=== PATIENT | male | born 1990 | race Caucasian/White ===

== ENCOUNTER 2020-07-20 13:03 | Emergency (ER) | payer SELFPAY ==
[~2020-07-20] VITALS: Ht 188 cm; Wt 135.0 kg
[2020-07-20 13:11] VITALS: BP 142/86
[2020-07-20] MEDS ORDERED: DIPH,PERTUSS(ACELL),TET VAC/PF 0.5 ML IM-VACC ONE ×2 (14:18→14:30)
--- NOTE | 2020-07-20 14:36 | NUR ---
emt at bedside for clean up.
[2020-07-20] MEDS ORDERED: RABIES VACCINE /PF 2.5 UNITS IM-VACC ONE (16:33)
[2020-07-20] MEDS ORDERED: RABIES IMMUNE GLOBULIN/PF 300 UNITS/ML,1ML IM ONE (17:00)
[2020-07-20] MEDS ORDERED: RABIES IMMUNE GLOBULIN/PF 150 UNITS/ML, 2ML IM ONE (17:00)
--- NOTE | 2020-07-20 17:25 | NUR ---
this rn discussed with pharmacy about vaccine and immunoglobulin. pt medicated per emar(6 shots given(including 1 vaccine). pt tolerated well.
== END 2020-07-20 17:26 | disposition home or self-care (01) ==
LOC: ED 16:20
DX: S61.252A Open bite of right middle finger without damage to nail, initial encounter (principal); W54.0XXA Bitten by dog, initial encounter; Y93.89 Activity, other specified; Y92.89 Other specified places as the place of occurrence of the external cause; Y99.8 Other external cause status
CPT/HCPCS: 90375; 90471; 90472; 90675; 90715; 96372; 99284